=== PATIENT | male | born 1995 | race Caucasian/White ===

== ENCOUNTER 2022-09-26 03:30 | Emergency (ER) | payer OTHER, MEDICAID, SELFPAY ==
[2022-09-26 03:35] VITALS: BP 162/89; PULSE 103; RESP 21; TEMP 36.6; O2SAT 97; BMI 22.8
[2022-09-26 03:39] VITALS: PULSE 107; O2SAT 98
--- NOTE | 2022-09-26 03:46 | ED.GENADULT ---
HPI - General Adult General Chief complaint: Toxicology Problem Stated complaint: anxious? Did meth doesn't feel right Time Seen by Provider: 09/26/22 03:37 Source: patient and EMS Mode of arrival: Ambulatory Limitations: no limitations History of Present Illness HPI narrative: Patient is a 27-year-old male who arrives by EMS who is also ambulatory for evaluation of feelings that he is having. He states he is feeling anxious. He did admit to doing cocaine and also smoking meth. Patient is not suicidal. He states that he is here because he is feeling anxious and after taking the medications he is concerned about his health and that he maybe killing himself because of his drug use. Related Data Allergies Allergy/AdvReac Type Severity Reaction Status Date / Time No Known Drug Allergies Allergy Verified 09/26/22 04:22 Review of Systems Constitutional Constitutional: Reports system reviewed and no additional complaints, except as documented Cardiovascular Cardiovascular: Reports system reviewed and no additional complaints, except as documented Respiratory Respiratory: Reports system reviewed and no additional complaints, except as documented Psychiatric Psychiatric: Reports system reviewed and no additional complaints, except as documented Patient History Social History Smoking Status: Current every day smoker Smoking Status: Current every day smoker alcohol intake frequency: a few times a week Substance Use Type: crack/cocaine and methamphetamine Exam Initial Vital Signs Initial Vital Signs: Vital Signs Temperature 97.9 F 09/26/22 03:35 Pulse Rate 103 H 09/26/22 03:35 Respiratory Rate 21 09/26/22 03:35 Blood Pressure 162/89 H 09/26/22 03:35 Pulse Oximetry 97 09/26/22 03:35 Oxygen Delivery Method Room Air 09/26/22 03:35 Resp Effort & Inspection: normal respiratory effort Auscultation: clear to auscultation bilaterally Cardio Rate: regular rate Rhythm: regular rhythm Skin General: no rashes or lesions noted Neuro General: patient alert, patient awake and moves all extremities Extrem General: normal to inspection and capillary refill normal Psych Other: Not suicidal. Course Orders Ordered: ED Orders 09/26/22 03:47 Consult to JUNIOR QA ANALYST - Cardiovascular Lab Director Stat 09/26/22 04:00 COVID19 -Nasal RAPID Stat 09/26/22 04:08 Acetaminophen Stat Complete Blood Count AUTO DIFF Stat Comprehensive Metabolic Panel Stat Ethanol (ETOH) Stat Lipase Stat Salicylate Stat Thyroid Stimulating Hormone Stat 09/26/22 04:30 Urine Drug Screen, Rapid Stat Discontinued Medications Lorazepam (Lorazepam 0.5 Mg Tablet) 1 mg PO NOW ONE Stop: 09/26/22 04:30 Last Admin: 09/26/22 04:41 Dose: 1 mg Documented By: AP Vital Signs Vital signs: Vital Signs - 8 hr 09/26/22 03:35 09/26/22 03:39 09/26/22 03:55 Temperature 97.9 F Pulse Rate 103 H 107 H Respiratory Rate 21 Blood Pressure 162/89 H 156/85 H Pulse Oximetry 97 98 Oxygen Delivery Method Room Air 09/26/22 03:55 09/26/22 04:00 09/26/22 04:00 Temperature Pulse Rate 103 H 96 H Respiratory Rate Blood Pressure 152/79 H Pulse Oximetry 98 98 Oxygen Delivery Method Medical Decision Making Lab Data Lab results reviewed: Yes I reviewed the patient's lab results. 09/26/22 04:08 09/26/22 04:08 Labs: Lab Results 09/26/22 09/26/22 09/26/22 Range/Units 04:00 04:08 04:08 WBC 6.4 (4.5-11.0) X10^3/uL RBC 4.49 L (4.5-5.9) X10^6/uL Hgb 14.2 (13.5-17.5) g/dL Hct 40.5 L (41-53) % MCV 90.2 (80-100) fL MCH 31.6 (26-34) PG MCHC 35.0 (30-36) % RDW 14.0 (11.6-14.8) % Plt Count 184 (150-400) X10^3/uL Neut % (Auto) 67.3 (50-75) % Lymph % (Auto) 22.3 L (25-40) % [place] % (Auto) 8.3 (3-14) % Eos % (Auto) 1.3 L (2-4) % Baso % (Auto) 0.8 (0-2) % Neut # (Auto) 4300 (7341-5518) /uL Lymph # (Auto) 1400 (6073-2481) /uL [place] # (Auto) 500 (0-900) /uL Eos # (Auto) 100 (0-450) /uL Baso # (Auto) 0 (0-100) /uL Sodium (137-145) mmol/L Potassium (3.4-5.1) mmol/L Chloride (98-107) mmol/L Carbon Dioxide (22-32) mmol/L BUN (9-20) mg/dL Creatinine (0.66-1.25) mg/dL Estimated GFR (>60) mL/min BUN/Creatinine Ratio (6-22) Glucose (70-100) mg/dL Calcium (8.4-10.2) mg/dL Total Bilirubin (0.2-1.3) mg/dL AST (17-59) IU/L ALT (<50) IU/L Alkaline Phosphatase (38-126) U/L Total Protein (6.3-8.2) g/dL Albumin (3.5-5.0) g/dL Globulin (1.7-4.1) g/dL Albumin/Globulin Ratio (1.0-2.8) Lipase (23-300) U/L Salicylates (<20) mg/dL U Opiates 300ng/mL cut (Negative) Ur Oxycodone Screen (Negative) Urine Methadone Screen (Negative) Acetaminophen < 10 (10-30) ug/mL Ur Barbiturates Screen (Negative) U Tricyclic Antidepress (Negative) Ur Phencyclidine Scrn (Negative) Ur Amphetamines Screen (Negative) U Methamphetamines Scrn (Negative) Ur MDMA Scrn (Ecstasy) (Negative) U Benzodiazepines Scrn (Negative) Urine Cocaine Screen (Negative) U Marijuana (THC) Screen (Negative) Ethyl Alcohol ( - 10) mg/dL SARS-CoV-2 (PCR) Negative (Negative) 09/26/22 09/26/22 Range/Units 04:08 04:30 WBC (4.5-11.0) X10^3/uL RBC (4.5-5.9) X10^6/uL Hgb (13.5-17.5) g/dL Hct (41-53) % MCV (80-100) fL MCH (26-34) PG MCHC (30-36) % RDW (11.6-14.8) % Plt Count (150-400) X10^3/uL Neut % (Auto) (50-75) % Lymph % (Auto) (25-40) % [place] % (Auto) (3-14) % Eos % (Auto) (2-4) % Baso % (Auto) (0-2) % Neut # (Auto) (2506-2735) /uL Lymph # (Auto) (2073-8527) /uL [place] # (Auto) (0-900) /uL Eos # (Auto) (0-450) /uL Baso # (Auto) (0-100) /uL Sodium 137 (137-145) mmol/L Potassium 3.2 L (3.4-5.1) mmol/L Chloride 101 (98-107) mmol/L Carbon Dioxide 30 (22-32) mmol/L BUN 8 L (9-20) mg/dL Creatinine 0.76 (0.66-1.25) mg/dL Estimated GFR > 60 (>60) mL/min BUN/Creatinine Ratio 10.5 (6-22) Glucose 101 H (70-100) mg/dL Calcium 9.4 (8.4-10.2) mg/dL Total Bilirubin 1.4 H (0.2-1.3) mg/dL AST 30 (17-59) IU/L ALT 24 (<50) IU/L Alkaline Phosphatase 66 (38-126) U/L Total Protein 7.8 (6.3-8.2) g/dL Albumin 4.6 (3.5-5.0) g/dL Globulin 3.2 (1.7-4.1) g/dL Albumin/Globulin Ratio 1.4 (1.0-2.8) Lipase 19 L (23-300) U/L Salicylates < 1.0 (<20) mg/dL U Opiates 300ng/mL cut Negative (Negative) Ur Oxycodone Screen Negative (Negative) Urine Methadone Screen Negative (Negative) Acetaminophen (10-30) ug/mL Ur Barbiturates Screen Negative (Negative) U Tricyclic Antidepress Negative (Negative) Ur Phencyclidine Scrn Negative (Negative) Ur Amphetamines Screen Positive H (Negative) U Methamphetamines Scrn Positive H (Negative) Ur MDMA Scrn (Ecstasy) Negative (Negative) U Benzodiazepines Scrn Positive H (Negative) Urine Cocaine Screen Positive H (Negative) U Marijuana (THC) Screen Negative (Negative) Ethyl Alcohol < 10 ( - 10) mg/dL SARS-CoV-2 (PCR) (Negative) MDM Narrative Medical decision making narrative: Patient does admit to doing cocaine and also smoking meth. He was feeling very anxious. He states he is not suicidal. Not homicidal. He does have a job. We discussed in being here in the emergency department. He states he was looking for detox. I told him that we would be able to help him as much as possible but we needed to go through medical clearance and potentially need to get social work involved. He was given some Ativan to help with his anxiety. Patient is alert oriented x3. GCS of 15. Is ambulatory. After period of time the patient stated that he did not want to stay any longer. He stated that he felt safe going home. Has no indication for an involuntary admission. Will discharge patient home. Discharge Plan Departure Patient Disposition: Home Clinical Impression: Methamphetamine abuse, Cocaine abuse Instructions: DI for Substance Use Disorder Activity Restrictions/Additional Instructions: No driving for the next 24 hours or in the future if you are taking intoxicating substances. I do recommend that you seek out treatment. You can do this on your own. Return to the emergency department for new or worsening symptoms. Stand Alone Forms: Patient Portal/API
[2022-09-26 03:55] VITALS: BP 156/85; PULSE 103; O2SAT 98
[2022-09-26 04:00] VITALS: BP 152/79; PULSE 96; O2SAT 98
[2022-09-26 04:24] LABS: Add Manual Diff / Slide Review NO; Basophils Absolute Auto 0 /uL (0-100); Basophils Percent Auto 0.8 % (0-2); Eosinophils Absolute Auto 100 /uL (0-450); Eosinophils Percent Auto 1.3 % (2-4); Hematocrit 40.5 % (41-53); Hemoglobin 14.2 g/dL (13.5-17.5); Lymphocytes Absolute Auto 1400 /uL (1100-4500); Lymphocytes Percent Auto 22.3 % (25-40); Mean Corpuscular Hemoglobin 31.6 PG (26-34); Mean Corpuscular Volume 90.2 fL (80-100); Monocytes Absolute Auto 500 /uL (0-900); Monocytes Percent Auto 8.3 % (3-14); Neutrophils Absolute Auto 4300 /uL (1500-7000); Neutrophils Percent Auto 67.3 % (50-75); Platelet Count 184 X10^3/uL (150-400); Red Blood Cell Count 4.49 X10^6/uL (4.5-5.9); White Blood Cell Count 6.4 X10^3/uL (4.5-11.0)
[2022-09-26 04:27] LABS: COVID19 -Nasal RAPID Negative (Negative)
[2022-09-26 04:29] LABS: Alanine Aminotransferase 24 IU/L (<50); Albumin 4.6 g/dL (3.5-5.0); Albumin Globulin Ratio 1.4 (1.0-2.8); Alkaline Phosphatase 66 U/L (38-126); Aspartate Aminotransferase 30 IU/L (17-59); BUN Creatinine Ratio 10.5 (6-22); Bilirubin Total 1.4 mg/dL (0.2-1.3); Blood Urea Nitrogen 8 mg/dL (9-20); Calcium 9.4 mg/dL (8.4-10.2); Carbon Dioxide 30 mmol/L (22-32); Chloride 101 mmol/L (98-107); Estimated Glomerular Filt Rate > 60 mL/min (>60); Ethanol (ETOH) < 10 mg/dL; Globulin 3.2 g/dL (1.7-4.1); Glucose 101 mg/dL (70-100); HEMOLYSIS < 15 (0-50); Lipase 19 U/L (23-300); Potassium 3.2 mmol/L (3.4-5.1); Salicylate < 1.0 mg/dL (<20); Sodium 137 mmol/L (137-145); Total Protein 7.8 g/dL (6.3-8.2)
[2022-09-26 04:30] LABS: Acetaminophen < 10 ug/mL (10-30)
[2022-09-26] MEDS: LORazepam 0.5 MG TABLET 1 MG PO (04:41)
[2022-09-26 04:47] LABS: Ur Creatinine Normal (Normal); Ur Specific Gravity Normal (Normal); Urine pH Normal (Normal)
[2022-09-26 04:48] LABS: UR Morphine/Opiate cutoff 300 Negative (Negative); Urine Amphetamines Positive (Negative); Urine Barbiturates Negative (Negative); Urine Benzodiazepines Positive (Negative); Urine Cocaine Positive (Negative); Urine MDMA Negative (Negative); Urine Methadone Negative (Negative); Urine Methamphetamines Positive (Negative); Urine Oxycodone Negative (Negative); Urine Phencyclidine Negative (Negative); Urine Tetrahydrocannabinol Negative (Negative); Urine Tricyclic Antidepressant Negative (Negative)
--- NOTE | 2022-09-26 04:50 | PC.NURSE ---
APPARATUS REPAIR MECHANIC note: patient requested a phone dramatic arts historian for his phone, then said no don't give me one. I will use go crazy if I have my phone. I haven't slept for days and if I fall asleep and wake up I will call for drugs. That's what happened last time. That's what happened this week.
[2022-09-26 05:28] VITALS: BP 156/79; PULSE 90; RESP 20; O2SAT 100
[2022-09-26 05:29] LABS: Thyroid Stimulating Hormone 0.769 uIU/mL (0.47-4.68)
== END 2022-09-26 05:31 | disposition home or self-care (01) ==
PROVIDERS: Emergency Provider Emergency Medicine
DX: F15.10 Other stimulant abuse, uncomplicated (principal); F14.10 Cocaine abuse, uncomplicated; Z20.822 Contact with and (suspected) exposure to COVID-19
CPT/HCPCS: 36415; 80053; 80305; 80320; 80329; 83690; 84443; 85025; 87635; 99284; C9803; G0480

== ENCOUNTER 2022-09-26 09:25 | Emergency (ER) | payer OTHER, MEDICAID, SELFPAY ==
[2022-09-26 09:30] VITALS: BP 149/87; PULSE 99; RESP 18; TEMP 36.7; O2SAT 98
--- NOTE | 2022-09-26 09:33 | PC.NURSE ---
state mother may come in and that ED staff / provider may share information with her.
[2022-09-26 10:30] LABS: Add Manual Diff / Slide Review NO; Basophils Absolute Auto 0 /uL (0-100); Basophils Percent Auto 0.4 % (0-2); Eosinophils Absolute Auto 100 /uL (0-450); Eosinophils Percent Auto 0.9 % (2-4); Hematocrit 42.2 % (41-53); Hemoglobin 14.6 g/dL (13.5-17.5); Lymphocytes Absolute Auto 1200 /uL (1100-4500); Lymphocytes Percent Auto 18.1 % (25-40); Mean Corpuscular HGB Conc 34.6 % (30-36); Mean Corpuscular Hemoglobin 31.5 PG (26-34); Monocytes Absolute Auto 600 /uL (0-900); Monocytes Percent Auto 8.5 % (3-14); Neutrophils Absolute Auto 4800 /uL (1500-7000); Neutrophils Percent Auto 72.1 % (50-75); Platelet Count 198 X10^3/uL (150-400); Red Blood Cell Count 4.64 X10^6/uL (4.5-5.9); Red Cell Distribution Width 13.7 % (11.6-14.8); White Blood Cell Count 6.6 X10^3/uL (4.5-11.0)
[2022-09-26 10:38] LABS: Alanine Aminotransferase 26 IU/L (<50); Albumin 4.9 g/dL (3.5-5.0); Albumin Globulin Ratio 1.4 (1.0-2.8); Alkaline Phosphatase 67 U/L (38-126); Aspartate Aminotransferase 30 IU/L (17-59); BUN Creatinine Ratio 11.8 (6-22); Bilirubin Total 1.8 mg/dL (0.2-1.3); Blood Urea Nitrogen 10 mg/dL (9-20); Calcium 9.5 mg/dL (8.4-10.2); Carbon Dioxide 28 mmol/L (22-32); Chloride 98 mmol/L (98-107); Estimated Glomerular Filt Rate > 60 mL/min (>60); Globulin 3.5 g/dL (1.7-4.1); Glucose 98 mg/dL (70-100); HEMOLYSIS < 15 (0-50); Potassium 4.1 mmol/L (3.4-5.1); Sodium 137 mmol/L (137-145); Total Protein 8.4 g/dL (6.3-8.2)
[2022-09-26 11:11] LABS: Thyroid Stimulating Hormone 0.557 uIU/mL (0.47-4.68)
--- NOTE | 2022-09-26 11:14 | ED_ITS ---
HPI - Psych General Chief Complaint: Psychiatric Symptoms Stated Complaint: Hallucinations Time Seen by Provider: 09/26/22 11:02 Source: patient and EMS Mode of arrival: EMS History of Present Illness HPI Narrative: Patient is a 27-year-old male with a history of substance abuse including alcohol meth and cocaine. He reports he is extremely paranoid and hearing voices. He was seen evaluated here just a few hours ago for the same. Admits to using cocaine and methamphetamine. He reports that he has a problem with alcohol as well but he has not had anything to drink lately. He was actually at a [facility] for chest pain or suicidal ideations he was not placed in a mental health facility. He is here now with family members he is wanting help detox. He has no suicidal or homicidal ideations at this time. He is currently voluntary. He received Ativan of during his last visit which he said did not help. He is overall extremely paranoid not sleeping. His previous urine drug screen was only positive for cocaine Related Data Allergies Allergy/AdvReac Type Severity Reaction Status Date / Time No Known Drug Allergies Allergy Verified 09/26/22 04:22 Review of Systems Review of Systems ROS Unobtainable: All systems reviewed & are unremarkable except as noted in HPI and below Patient History Social History Smoking Status: Current every day smoker Smoking Status: Current every day smoker alcohol intake frequency: a few times a week Substance Use Type: crack/cocaine and methamphetamine Exam Initial Vital Signs Initial Vital Signs: Vital Signs Temperature 98.1 F 09/26/22 09:30 Pulse Rate 99 H 09/26/22 09:30 Respiratory Rate 18 09/26/22 09:30 Blood Pressure 149/87 H 09/26/22 09:30 Pulse Oximetry 98 09/26/22 09:30 Oxygen Delivery Method Room Air 09/26/22 09:30 GENERAL: Alert well-appearing 27-year-old male and in no acute distress. HEENT: Head atraumatic,EOMI, pupils reactive, face symmetric, moist mucous membranes CARDIOVASCULAR: Regular rate and rhythm without murmurs, rubs or gallops. RESPIRATORY: Breath sounds equal bilaterally, no wheezes rales or rhonchi. ABDOMEN: Soft, nontender. Normoactive bowel sounds all 4 quadrants. No guarding or rebound. EXTREMITIES: Normal range of motion, no clubbing or edema. Neurovascularly intact NEUROLOGICAL: Alert and oriented x4. SKIN: Warm, dry, no laceration, no petechiae, no rashes or lesions. Course Orders Ordered: ED Orders 09/26/22 11:13 Urinalysis and Microscopic Stat Urine Drug Screen, Rapid Stat 09/26/22 11:34 Consult to COMPOSITION WEATHERBOARD INSTALLER - Mercury Purifier Stat Discontinued Medications Lorazepam (Lorazepam 0.5 Mg Tablet) 1 mg PO NOW ONE Stop: 09/26/22 11:24 Last Admin: 09/26/22 12:59 Dose: 1 mg Documented By: NR Olanzapine (Olanzapine Odt 10 Mg Tab) 10 mg PO NOW ONE Stop: 09/26/22 13:31 Last Admin: 09/26/22 14:31 Dose: Not Given Documented By: NR Vital Signs Vital signs: Vital Signs - 8 hr 09/26/22 12:37 09/26/22 14:44 Pulse Rate 119 H 129 H Respiratory Rate 16 Blood Pressure 154/71 H 146/83 H Pulse Oximetry 98 96 Oxygen Delivery Method Room Air Room Air MDM - Psych Lab Data 09/26/22 10:10 09/26/22 10:10 Labs: Lab Results 09/26/22 09/26/22 09/26/22 Range/Units 10:10 10:10 10:10 WBC 6.6 (4.5-11.0) X10^3/uL RBC 4.64 (4.5-5.9) X10^6/uL Hgb 14.6 (13.5-17.5) g/dL Hct 42.2 (41-53) % MCV 91.0 (80-100) fL MCH 31.5 (26-34) PG MCHC 34.6 (30-36) % RDW 13.7 (11.6-14.8) % Plt Count 198 (150-400) X10^3/uL Neut % (Auto) 72.1 (50-75) % Lymph % (Auto) 18.1 L (25-40) % [place] % (Auto) 8.5 (3-14) % Eos % (Auto) 0.9 L (2-4) % Baso % (Auto) 0.4 (0-2) % Neut # (Auto) 4800 (3019-3542) /uL Lymph # (Auto) 1200 (1881-7344) /uL [place] # (Auto) 600 (0-900) /uL Eos # (Auto) 100 (0-450) /uL Baso # (Auto) 0 (0-100) /uL Sodium 137 (137-145) mmol/L Potassium 4.1 (3.4-5.1) mmol/L Chloride 98 (98-107) mmol/L Carbon Dioxide 28 (22-32) mmol/L BUN 10 (9-20) mg/dL Creatinine 0.85 (0.66-1.25) mg/dL Estimated GFR > 60 (>60) mL/min BUN/Creatinine Ratio 11.8 (6-22) Glucose 98 (70-100) mg/dL Calcium 9.5 (8.4-10.2) mg/dL Total Bilirubin 1.8 H (0.2-1.3) mg/dL AST 30 (17-59) IU/L ALT 26 (<50) IU/L Alkaline Phosphatase 67 (38-126) U/L Total Protein 8.4 H (6.3-8.2) g/dL Albumin 4.9 (3.5-5.0) g/dL Globulin 3.5 (1.7-4.1) g/dL Albumin/Globulin Ratio 1.4 (1.0-2.8) TSH 0.557 D (0.47-4.68) uIU/mL Free T4 1.41 (0.78-2.19) ng/dL Urine Color Urine Appearance Urine pH (4.5-8.0) Ur Specific Post (1.000-1.035) Urine Protein (Negative) Urine Glucose (UA) (Negative) g/dL Urine Ketones (NEGATIVE) Urine Occult Blood (Negative) Urine Nitrate (Negative) Urine Bilirubin (NEGATIVE) Urine Urobilinogen (0.2) E.U./dL Ur Leukocyte Esterase (NEGATIVE) Urine RBC (0-5/HPF) Urine WBC (0-5/HPF) Ur Squamous Epith Cells (0-5/HPF) Urine Bacteria (None) Ur Culture Indicated? Salicylates < 1.0 (<20) mg/dL U Opiates 300ng/mL cut (Negative) Ur Oxycodone Screen (Negative) Urine Methadone Screen (Negative) Acetaminophen < 10 (10-30) ug/mL Ur Barbiturates Screen (Negative) U Tricyclic Antidepress (Negative) Ur Phencyclidine Scrn (Negative) Ur Amphetamines Screen (Negative) U Methamphetamines Scrn (Negative) Ur MDMA Scrn (Ecstasy) (Negative) U Benzodiazepines Scrn (Negative) Urine Cocaine Screen (Negative) U Marijuana (THC) Screen (Negative) Ethyl Alcohol < 10 ( - 10) mg/dL 09/26/22 09/26/22 Range/Units 11:13 11:13 WBC (4.5-11.0) X10^3/uL RBC (4.5-5.9) X10^6/uL Hgb (13.5-17.5) g/dL Hct (41-53) % MCV (80-100) fL MCH (26-34) PG MCHC (30-36) % RDW (11.6-14.8) % Plt Count (150-400) X10^3/uL Neut % (Auto) (50-75) % Lymph % (Auto) (25-40) % [place] % (Auto) (3-14) % Eos % (Auto) (2-4) % Baso % (Auto) (0-2) % Neut # (Auto) (1734-0521) /uL Lymph # (Auto) (4111-9863) /uL [place] # (Auto) (0-900) /uL Eos # (Auto) (0-450) /uL Baso # (Auto) (0-100) /uL Sodium (137-145) mmol/L Potassium (3.4-5.1) mmol/L Chloride (98-107) mmol/L Carbon Dioxide (22-32) mmol/L BUN (9-20) mg/dL Creatinine (0.66-1.25) mg/dL Estimated GFR (>60) mL/min BUN/Creatinine Ratio (6-22) Glucose (70-100) mg/dL Calcium (8.4-10.2) mg/dL Total Bilirubin (0.2-1.3) mg/dL AST (17-59) IU/L ALT (<50) IU/L Alkaline Phosphatase (38-126) U/L Total Protein (6.3-8.2) g/dL Albumin (3.5-5.0) g/dL Globulin (1.7-4.1) g/dL Albumin/Globulin Ratio (1.0-2.8) TSH (0.47-4.68) uIU/mL Free T4 (0.78-2.19) ng/dL Urine Color Yellow Urine Appearance Clear Urine pH 7.0 (4.5-8.0) Ur Specific Post <=1.005 (1.000-1.035) Urine Protein Negative (Negative) Urine Glucose (UA) Negative (Negative) g/dL Urine Ketones Negative (NEGATIVE) Urine Occult Blood Negative (Negative) Urine Nitrate Negative (Negative) Urine Bilirubin Negative (NEGATIVE) Urine Urobilinogen 0.2 (0.2) E.U./dL Ur Leukocyte Esterase Negative (NEGATIVE) Urine RBC None seen (0-5/HPF) Urine WBC None seen (0-5/HPF) Ur Squamous Epith Cells None seen (0-5/HPF) Urine Bacteria None seen (None) Ur Culture Indicated? Cult not indicated Salicylates (<20) mg/dL U Opiates 300ng/mL cut Negative (Negative) Ur Oxycodone Screen Negative (Negative) Urine Methadone Screen Negative (Negative) Acetaminophen (10-30) ug/mL Ur Barbiturates Screen Negative (Negative) U Tricyclic Antidepress Negative (Negative) Ur Phencyclidine Scrn Negative (Negative) Ur Amphetamines Screen Positive H (Negative) U Methamphetamines Scrn Positive H (Negative) Ur MDMA Scrn (Ecstasy) Negative (Negative) U Benzodiazepines Scrn Positive H (Negative) Urine Cocaine Screen Positive H (Negative) U Marijuana (THC) Screen Negative (Negative) Ethyl Alcohol ( - 10) mg/dL MDM Narrative Medical decision making narrative: Patient presents for the 2nd time in less than 12 hours for substance abuse and hallucinations. He is not involuntary he is cooperative. Social work evaluated him unable to find bed although there was hope in [place]. Blood work is overall reassuring similar to prior. Patient has good family support no suicidal ideations feels ready to go home Discharge Plan Departure Patient Disposition: Home Clinical Impression: Polysubstance abuse Instructions: DI for Substance Use Disorder Activity Restrictions/Additional Instructions: *You have been diagnosed with polysubstance abuse *What to do: At this time I recommend that you call places on the list you were given to be sure that there is a bed. *Continue to take medications as directed *Follow up with your primary care provider in 2-3 days or call [phone] *Return to ER if you should have of harming self, worsening hallucinations or any new, worsening or concerning symptoms Referrals: Miscelldavid,Doctor, MD [Primary Care Provider] - Stand Alone Forms: Patient Portal/API
[2022-09-26 11:21] LABS: Appearance Urine UA CLEAR; Bilirubin Urine UA NEGATIVE (NEGATIVE); Color Urine UA YELLOW; Glucose Urine UA NEGATIVE (Negative); Ketones Urine UA NEGATIVE (NEGATIVE); Leukocyte Esterase Urine UA NEGATIVE (NEGATIVE); Nitrite Urine UA NEGATIVE (Negative); Occult Blood Urine UA NEGATIVE (Negative); Protein Urine UA NEGATIVE (Negative); Specific Gravity Urine UA <=1.005 (1.000-1.035); Urobilinogen Urine UA 0.2 E.U./dL (0.2)
[2022-09-26 11:31] LABS: Bacteria Urine None Seen; Culture Indicated Urine Cult Not Indicated; RBC Urine None Seen (0-5/HPF); Squamous Epithelial Cell Urine None Seen (0-5/HPF); WBC Urine None Seen (0-5/HPF)
[2022-09-26 11:36] LABS: UR Morphine/Opiate cutoff 300 Negative (Negative); Ur Creatinine Normal (Normal); Ur Specific Gravity Normal (Normal); Urine Amphetamines Positive (Negative); Urine Barbiturates Negative (Negative); Urine Benzodiazepines Positive (Negative); Urine Cocaine Positive (Negative); Urine MDMA Negative (Negative); Urine Methadone Negative (Negative); Urine Methamphetamines Positive (Negative); Urine Oxycodone Negative (Negative); Urine Phencyclidine Negative (Negative); Urine Tetrahydrocannabinol Negative (Negative); Urine Tricyclic Antidepressant Negative (Negative); Urine pH Normal (Normal)
--- NOTE | 2022-09-26 12:09 | PC.NURSE ---
went to give ativan to patient, pt states he had that this morning and it did not do anything for him. he aslo states that after he took it, he felt like he was jumping out of his skin and that everyone here was going to kill him. which is probably why he left. he does not want to take it again but did state if we give it to him IV, he does not have the same feelings. informed provider. no IV mediation ordered at this time. family member went to get food for patient, states he has no eaten in 2 days or slept. encouraged food and to close door and turn of lights for as much peace and quiet at possible.
[2022-09-26 12:18] LABS: Acetaminophen < 10 ug/mL (10-30); Ethanol (ETOH) < 10 mg/dL; Salicylate < 1.0 mg/dL (<20)
[2022-09-26 12:37] VITALS: BP 154/71; PULSE 119; O2SAT 98
[2022-09-26] MEDS: LORazepam 0.5 MG TABLET 1 MG PO (12:59)
--- NOTE | 2022-09-26 14:09 | PC.NURSE ---
checked with HOME COORDINATOR, pt is okay to discharge home [facility]. Pt offered zyprexa prior to discharge but he did not want to take it, stating the side effects sound worse than the voices in his head. provider notified. pt and family waiting for discharge instructions prior to d.c
[2022-09-26 14:44] VITALS: BP 146/83; PULSE 129; RESP 16; O2SAT 96
[2022-09-26 15:36] LABS: Free T4, Direct Thyroxine 1.41 ng/dL (0.78-2.19)
== END 2022-09-26 14:45 | disposition home or self-care (01) ==
PROVIDERS: Emergency Provider Emergency Medicine
DX: F19.10 Other psychoactive substance abuse, uncomplicated (principal); Z20.822 Contact with and (suspected) exposure to COVID-19; F15.10 Other stimulant abuse, uncomplicated; F14.10 Cocaine abuse, uncomplicated
CPT/HCPCS: 36415; 80053; 80305; 80320; 80329; 81001; 83690; 84439; 84443; 85025; 87635; 99283; 99284; C9803; G0480